=== PATIENT | female | born 2000 | race Caucasian/White ===

== ENCOUNTER → 2019-07-22 16:55 | Outpatient (CLI) | payer BC, SELFPAY ==
[2019-07-22 16:57] LABS: Adenovirus,PCR Not Detected (NotDetected); Bordetella Pertussis Not Detected (NotDetected); Chlamydophila Pneumoniae, PCR Not Detected (NotDetected); Coronavirus 229E Not Detected (NotDetected); Coronavirus NL63 Not Detected (NotDetected); Coronavirus OC43 Not Detected (NotDetected); Coronovirus HKU1,PCR Not Detected (NotDetected); Human Metapneumovirus Not Detected (NotDetected); Influenza A, PCR Not Detected (NotDetected); Influenza AH1, 2009 Not Detected (NotDetected); Influenza AH1, PCR Not Detected (NotDetected); Influenza AH3,PCR Not Detected (NotDetected); Influenza B, PCR Not Detected (NotDetected); Mycoplasma Pneumoniae, PCR Not Detected (NotDetected); Parainfluenza 1, PCR Not Detected (NotDetected); Parainfluenza 2, PCR Not Detected (NotDetected); Parainfluenza 3, PCR Not Detected (NotDetected); Parainfluenza 4, PCR Not Detected (NotDetected); Respiratory Syncytial Virus Not Detected (NotDetected); Rhinovirus/Enterovirus Not Detected (NotDetected)
== END ==
PROVIDERS: Visit Provider Internal Medicine
DX: R59.9 Enlarged lymph nodes, unspecified (principal); R06.02 Shortness of breath; R05 Cough; Z20.828 Contact with and (suspected) exposure to other viral communicable diseases
CPT/HCPCS: 87486; 87581; 87633; 87798

== ENCOUNTER → 2020-02-03 15:59 | Outpatient (CLI) | payer BC, SELFPAY ==
[2020-02-05 14:10] LABS: Covid-19 Nasal PCR Sendout Lex NOT DETECTED
== END ==
PROVIDERS: Visit Provider Internal Medicine
DX: Z03.818 Encounter for observation for suspected exposure to other biological agents ruled out (principal); R50.9 Fever, unspecified; R05 Cough; R09.81 Nasal congestion
CPT/HCPCS: U0004

== ENCOUNTER → 2021-03-28 15:36 | Outpatient (CLI) | payer SELFPAY | PROVIDERS: PCP Internal Medicine; Visit Provider Nurse Practitioner | DX: Z20.822 Contact with and (suspected) exposure to COVID-19 (principal) | CPT/HCPCS: C9803; U0003; U0005 ==

== ENCOUNTER 2022-10-02 23:13 | Emergency (ER) | payer SELFPAY ==
[2022-10-02 23:26] VITALS: BP 121/79; PULSE 81; RESP 19; TEMP 36.7; O2SAT 98; BMI 22.9
[2022-10-02 23:36] LABS: Microscopic, Urine URINE MICROSCOPIC (MICROSCOPIC)
--- NOTE | 2022-10-02 23:37 | HMH.EDABDPAI ---
Discharge Plan Disposition Patient Disposition: Home, Self-Care Chief Complaint: Abdominal Pain Prescriptions Prescriptions: No Action Nexplanon 68 mg implant SUBDERMAL azithromycin 500 mg tablet See Rx Instructions PO .COMPLEX Qty: 3 0RF Dose Instruction: take 500 mg today (day 1), then 250 mg for 4 days (days 2-5) PO Rx Instructions: take 500 mg today (day 1), then 250 mg for 4 days (days 2-5) PO Referrals Follow up/Referrals: Damien Landis MD [Primary Care Provider] - See instructions Natty Cyr APRN [Staff Physician] - See instructions Clinical Impressions Clinical Impression: Abdominal pain Instructions Patient Instructions: DI for Acute Abdominal Pain Discharge ED Provider: Kristen (ED)Beto Abdominal Pain HPI General Chief Complaint: Abdominal Pain Stated Complaint: stomach pain with nausea Time Seen by Provider: 10/02/22 23:37 Mode of Arrival: Family Vehicle Source of Information: Patient and Medical Record Limitations: No Limitations Description of Symptoms (Recalled from ER Triage Doc. by RN): 21 yo femal sharp midepigastric pain that is intermittent, radiates up throughout chest and out between her shoulder blades. States she doesn't usually go to the doctor, but was told she had a bad gallbladder once. States most recent BM today and was diarrhea, bloody with red tinged blood . Currently on menses. BC implant in left arm. Afebrile. Denies n/v. Dyspnea with the mid-epigastric pain. Resolves independently and is not reproducible with movement. History of Present Illness HPI narrative: upper abd pain over the last few days rad to back - also has loose stool with possible blood in stool - complaint: abdominal pain Onset (ago): day(s) Consistency: intermittent Location: epigastric Severity: moderate Associated symptoms: denies other symptoms Related Data Home Medications Medication Instructions Recorded Confirmed etonogestrel 68 mg subdermal subdermal 07/29/18 03/15/19 implant (Nexplanon) Previous Rx's Medication Instructions Recorded azithromycin 500 mg tablet See Rx Instructions PO .COMPLEX #3 03/15/19 tabs Allergies Allergy/AdvReac Type Severity Reaction Status Date / Time Penicillins Allergy Unknown Verified 03/15/19 10:34 [facility] Disclaimer: The information contained in this section may have been updated after the patient was seen, as this information can be updated by other users. Social History Smoking Status: Never smoker alcohol intake: current substance use type: denies use current occupational status: employed Travel in the last 8 weeks: None ROS Obtained: Yes All systems reviewed & no additional complaints except as documented Physical Exam General General appearance: alert Head Head exam: normocephalic Eye Eye exam: Present PERRL and EOMI ENT ENT exam: Present mucous membranes moist Neck Neck exam: Present trachea midline Respiratory Respiratory exam: Absent respiratory distress Cardiovascular Cardiovascular exam: Present regular rate Abdominal Exam Abdominal exam: Present soft, tenderness and Colunga's sign; Absent guarding Abdominal tenderness: Present epigastrium and moderate Extremities Exam Extremities exam: Present full ROM Neurological Exam Neurological exam: Present alert, oriented X3 and CN II-XII intact; Absent motor sensory deficit Skin Skin exam: Absent rash Medical Decision Making Medical Records Medical records reviewed: Yes I reviewed the patient's medical records. Freeman Inquiry Pt receiving controlled substance: No Vital Signs: 10/02/22 23:26 Temperature 98.1 F Temperature Source Oral Pulse Rate [Right Brachial] 81 Respiratory Rate 19 Blood Pressure [Right Arm] 121/79 Blood Pressure Mean [Right Arm] 93 Blood Pressure Source [Right Arm] Automatic Cuff Blood Pressure Position [Right Arm] Sitting 02 Sat by Pulse Oximetry 98 Oxygen Delivery Method Room Air Lab
[2022-10-02 23:55] LABS: Appearance,Urine CLEAR (Clear); Bilirubin,Urine Negative (Negative); Blood, Urine Negative (Negative); Color,Urine YELLOW (Yellow); Glucose,Urine (UA) Negative (Negative); Ketones,Urine Negative (Negative); Leukocyte Esterase,Urine Negative (Negative); Nitrate,Urine Negative (Negative); PH,Urine 5.5 (5.0-8.5); Protein,Urine Negative (Negative); Specific Gravity, Urine <= 1.005 (1.005-1.030); Urobilinogen,Urine 0.2 EU/dl (0.2)
[2022-10-02 23:56] LABS: Urine Pregnancy, HCG Qual. Negative (Negative)
--- NOTE | 2022-10-03 | CT_ITS ---
PROCEDURE INFORMATION: Exam: CT Abdomen And Pelvis With Contrast Exam date and time: 10/03/2022 12:14 AM Age: 21 years old Clinical indication: Nausea; Abdominal pain; Localized; Upper; Additional info: Mid epi abd pain TECHNIQUE: Imaging protocol: Computed tomography of the abdomen and pelvis with contrast. Radiation optimization: All CT scans at this facility use at least one of these dose optimization techniques: automated exposure control; mA and/or kV adjustment per patient size (includes targeted exams where dose is matched to clinical indication); or iterative reconstruction. Contrast material: ISOVUE; Contrast volume: 75 ml; Contrast route: IV; REPORTING DATA: Count of CT and Cardiac NM exams in prior 12 months: This patient has received 0 known CTs and 0 known cardiac nuclear medicine studies in the 12 months prior to the current study. COMPARISON: CR PELAP PELVIS AP ONLY 11/17/2015 12:47 AM FINDINGS: Liver: Normal. No mass. Gallbladder and bile ducts: Normal. No calcified stones. No ductal dilation. Pancreas: Normal. No ductal dilation. Spleen: Normal. No splenomegaly. Adrenal glands: Normal. No mass. Kidneys and ureters: Normal. No hydronephrosis. Stomach and bowel: Unremarkable. No obstruction. No mucosal thickening. Appendix: No evidence of appendicitis. The appendix appears normal. Intraperitoneal space: There is trace fluid in the cul-de-sac. Vasculature: Unremarkable. No abdominal aortic aneurysm. Lymph nodes: Unremarkable. No enlarged lymph nodes. Urinary bladder: Unremarkable as visualized. Reproductive: Unremarkable as visualized. Bones/joints: Unremarkable. No acute fracture. Soft tissues: Unremarkable. IMPRESSION: Trace fluid in the cul-de-sac. Otherwise no evidence of acute process.
[2022-10-03 00:19] LABS: Bacteria,Urine Trace /lpf
[2022-10-03 00:52] LABS: Basophils % 0.4 % (0.1-2.0); Eosinophils # 0.3 K/mm3 (0.0-0.4); Eosinophils % 2.7 % (0.1-12.0); Hematocrit 41.5 % (37.0-47.0); Hemoglobin 13.8 g/dL (12.2-16.2); Lymphocytes # 3.5 K/mm3 (0.7-4.5); Lymphocytes % 36.4 % (10-50); Mean Corpuscular HGB Conc 33.2 g/dL (31.8-35.4); Mean Corpuscular Hemoglobin 30.7 pg (27.0-31.2); Mean Corpuscular Volume 92.6 fl (81-99); Mean Platelet Volume 9.8 fl (7.4-10.4); Monocytes # 0.5 K/mm3 (0.1-1.0); Monocytes % 4.7 % (1.7-9.3); Neutrophils # 5.3 K/mm3 (1.8-7.8); Neutrophils % 55.8 % (37.0-80.0); Platelet Count 225 K/mm3 (142-424); Red Blood Count 4.49 M/mm3 (4.20-5.40); Red Cell Distribution Width 12.4 % (11.5-17.5); White Blood Count 9.6 K/mm3 (4.8-10.8)
[2022-10-03 01:13] LABS: Chloride 102 mmol/L (98-107); Sodium 142 mmol/L (136-145)
[2022-10-03 01:14] LABS: Potassium 3.6 mmoL/L (3.5-5.1)
[2022-10-03 01:16] LABS: Alanine Aminotransferase 24 U/L (12-78); Amylase 84 U/L (30-110); Anion Gap 18.6 mEq/L (5-15); Aspartate Amino Transferase 35 U/L (14-36); Blood Urea Nitrogen 16 mg/dl (7-17); Carbon Dioxide 25 mmol/L (22.0-30.0); Creatinine Clearance Estimated 108 mL/min (50-200); Estimated Glomerular Filt Rate 78 ml/min (>60); GFR (African American) 94 ML/MIN (>60)
[2022-10-03 01:17] LABS: Albumin Level 4.6 g/dl (3.5-5.0); Albumin/Globulin Ratio 1.6 (1.1-1.8); Alkaline Phosphatase 24 U/L (38-126); Bilirubin,Total 0.3 mg/dl (0.2-1.3); Calcium 9.1 mg/dl (8.4-10.2); Globulin 2.8 g/dL (1.3-3.2); Glucose 80 mg/dl (74-100); Lipase 240 U/L (23-300); Total Protein,Serum 7.4 g/dl (6.3-8.2)
[2022-10-03 01:22] LABS: C-Reactive Protein 2.3 mg/L (0-4)
[2022-10-03 01:54] LABS: Erythrocyte Sedimentation Rate 16 mm/hr (0-20)
[2022-10-03 02:01] LABS: Procalcitonin 0.039 ng/mL (0.0-2.0)
[2022-10-03 02:08] VITALS: BP 125/75; PULSE 76; RESP 19; TEMP 36.8; O2SAT 98
== END 2022-10-03 02:22 | disposition home or self-care (01) ==
PROVIDERS: Emergency Provider Emergency Medicine; PCP Internal Medicine
DX: R10.13 Epigastric pain (principal); R11.0 Nausea
CPT/HCPCS: 74177; 80053; 81001; 81025; 82150; 83690; 84145; 85025; 85651; 86140; 96361; 96374; 96375; 99284; 99285; Q9967

== ENCOUNTER 2022-10-05 01:43 | Emergency (ER) | payer OTHER, SELFPAY ==
[2022-10-05] VITALS (8 sets, daily range): BP systolic 118–149; BP diastolic 72–105; PULSE 54–97; RESP 16; TEMP 37; O2SAT 99–100; BMI 22.9
--- NOTE | 2022-10-05 01:42 | ECG_ITS ---
APPROVED REPORT Exam: Resting ECG HR:78 bpm ECG Measurements Heart Rate 78 AXES CA 151 P 59 QRSd 90 QRS 74 QT 381 T 54 QTc 415 Conclusion SINUS RHYTHM WITH SINUS ARRHYTHMIA NORMAL ECG UNCONFIRMED REPORT Electronically signed by : Haseeb Cisneros MD 10/06/2022 07:16:03
--- NOTE | 2022-10-05 01:44 | XR_ITS ---
PROCEDURE INFORMATION: Exam: XR Chest Exam date and time: 10/05/2022 2:17 AM Age: 22 years old Clinical indication: Pain; Other: Epigastric; Additional info: Cp TECHNIQUE: Imaging protocol: Radiologic exam of the chest. Views: 2 views. COMPARISON: CR CXR CHEST(2 VIEWS-NOT PORTABLE) 11/17/2015 12:45 AM FINDINGS: Lungs: Normal. Pleural spaces: Unremarkable. No pleural effusion. No pneumothorax. Heart/Mediastinum: Normal. Bones/joints: No acute abnormality. IMPRESSION: No acute findings.
[2022-10-05 01:57] LABS: Basophils % 0.4 % (0.1-2.0); Eosinophils # 0.3 K/mm3 (0.0-0.4); Eosinophils % 3.2 % (0.1-12.0); Hematocrit 43.2 % (37.0-47.0); Hemoglobin 13.8 g/dL (12.2-16.2); Lymphocytes # 4.1 K/mm3 (0.7-4.5); Lymphocytes % 40.6 % (10-50); Mean Corpuscular Hemoglobin 29.7 pg (27.0-31.2); Mean Platelet Volume 8.8 fl (7.4-10.4); Monocytes # 0.5 K/mm3 (0.1-1.0); Monocytes % 4.7 % (1.7-9.3); Neutrophils # 5.2 K/mm3 (1.8-7.8); Neutrophils % 51.1 % (37.0-80.0); Platelet Count 221 K/mm3 (142-424); Red Blood Count 4.65 M/mm3 (4.20-5.40); Red Cell Distribution Width 12.4 % (11.5-17.5); White Blood Count 10.1 K/mm3 (4.8-10.8)
[2022-10-05 01:59] LABS: Chloride 101 mmol/L (98-107); Potassium 3.7 mmoL/L (3.5-5.1); Sodium 139 mmol/L (136-145)
[2022-10-05 02:02] LABS: Anion Gap 16.7 mEq/L (5-15); Blood Urea Nitrogen 11 mg/dl (7-17); Carbon Dioxide 25 mmol/L (22.0-30.0); Creatinine Clearance Estimated 124 mL/min (50-200); Estimated Glomerular Filt Rate 88 ml/min (>60); GFR (African American) 107 ML/MIN (>60); Glucose 91 mg/dl (74-100)
[2022-10-05 02:08] LABS: C-Reactive Protein 1.5 mg/L (0-4)
[2022-10-05 02:15] LABS: Amylase 81 U/L (30-110); Lipase 220 U/L (23-300)
[2022-10-05 02:17] LABS: HCG Qualitative, Serum Negative (Negative)
[2022-10-05 02:20] LABS: Procalcitonin 0.035 ng/mL (0.0-2.0)
--- NOTE | 2022-10-05 02:22 | CT_ITS ---
PROCEDURE INFORMATION: Exam: CT Abdomen And Pelvis With Contrast Exam date and time: 10/05/2022 2:31 AM Age: 22 years old Clinical indication: Abdominal pain; Patient HX: Epigastric pain x4 days. TECHNIQUE: Imaging protocol: Computed tomography of the abdomen and pelvis with contrast. Radiation optimization: All CT scans at this facility use at least one of these dose optimization techniques: automated exposure control; mA and/or kV adjustment per patient size (includes targeted exams where dose is matched to clinical indication); or iterative reconstruction. Contrast material: ISOVUE; Contrast volume: 75 ml; Contrast route: IV; REPORTING DATA: Count of CT and Cardiac NM exams in prior 12 months: This patient has received [address] and 0 known cardiac nuclear medicine studies in the 12 months prior to the current study. COMPARISON: CT ABDOMEN PELVIS W CON 10/03/2022 12:14 AM FINDINGS: Liver: Mild hepatomegaly. Gallbladder and bile ducts: Normal. Pancreas: Normal. Spleen: Normal. Adrenal glands: Normal. No mass. Kidneys and ureters: Normal. Stomach and bowel: Several loops of nondilated, gas and fluid-filled small bowel, which is a nonspecific finding, but can be seen with enteritis. Appendix: Appendix normal. Intraperitoneal space: Small amount of pelvic free fluid, likely physiologic. Vasculature: Unremarkable. No abdominal aortic aneurysm. Lymph nodes: Unremarkable. No enlarged lymph nodes. Urinary bladder: Unremarkable as visualized. Reproductive: 16 mm right ovarian cyst. Bones/joints: No acute abnormality. Soft tissues: Normal. IMPRESSION: Several loops of nondilated, gas and fluid-filled small bowel, which is a nonspecific finding, but can be seen with enteritis.
[2022-10-05 02:23] LABS: Free T4 (Free Thyroxine) 0.94 ng/dl (0.78-2.19)
[2022-10-05 02:24] LABS: Troponin I < 0.01 ng/ml (0.00-0.034)
[2022-10-05 02:32] LABS: Erythrocyte Sedimentation Rate 10 mm/hr (0-20)
[2022-10-05 02:35] LABS: Thyroid Stimulating Hormone 7.03 uIU/mL (0.465-4.68)
[2022-10-05 03:32] LABS: Microscopic, Urine URINE MICROSCOPIC (MICROSCOPIC)
[2022-10-05 03:34] LABS: Appearance,Urine CLEAR (Clear); Bilirubin,Urine Negative (Negative); Blood, Urine Negative (Negative); Color,Urine YELLOW (Yellow); Glucose,Urine (UA) Negative (Negative); Ketones,Urine Negative (Negative); Leukocyte Esterase,Urine Negative (Negative); Nitrate,Urine Negative (Negative); PH,Urine 5.5 (5.0-8.5); Protein,Urine Negative (Negative); Specific Gravity, Urine <= 1.005 (1.005-1.030); Urobilinogen,Urine 0.2 EU/dl (0.2)
[2022-10-05 03:55] LABS: Bacteria,Urine Trace /lpf
--- NOTE | 2022-10-05 04:09 | PC.NURSE ---
called xray to check status of scans. 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
--- NOTE | 2022-10-05 05:00 | HMH.EDABDPAI ---
Discharge Plan Disposition Patient Disposition: Home, Self-Care Prescriptions Prescriptions: New dicyclomine 10 mg capsule 10 mg PO TID Qty: 30 0RF No Action Nexplanon 68 mg implant 68 implant SUBDERMAL DAILY Referrals Follow up/Referrals: Damien Landis MD [Primary Care Provider] - See instructions Natty Cyr APRN [Staff Physician] - See instructions Clinical Impressions Clinical Impression: Enteritis Instructions Patient Instructions: DI for Acute Abdominal Pain Discharge ED Provider: Kristen (ED)Beto Abdominal Pain HPI General Chief Complaint: Abdominal Pain Stated Complaint: cp Time Seen by Provider: 10/05/22 03:00 Mode of Arrival: Ambulatory Source of Information: Patient and Medical Record Limitations: No Limitations Description of Symptoms (Recalled from ER Triage Doc. by RN): pt c/o epigastric pain radiating around to back x 4 days. pt states was seen in er on 10/02 for same problem. Tried to see pcp yesterday but office was close History of Present Illness HPI narrative: pt with ongoing abd pain with diarrhea x 4 days complaint: abdominal pain Onset (ago): day(s) Consistency: intermittent Location: diffuse Severity: moderate Associated symptoms: denies other symptoms Related Data Home Medications Medication Instructions Recorded Confirmed etonogestrel 68 mg subdermal 68 implant subdermal DAILY 07/29/18 10/05/22 implant (Nexplanon) control Previous Rx's Medication Instructions Recorded dicyclomine 10 mg capsule 10 mg PO TID #30 caps 10/05/22 Allergies Allergy/AdvReac Type Severity Reaction Status Date / Time Penicillins Allergy Unknown Verified 03/15/19 10:34 [facility] Disclaimer: The information contained in this section may have been updated after the patient was seen, as this information can be updated by other users. Social History Smoking Status: Never smoker alcohol intake: current substance use type: denies use current occupational status: employed Travel in the last 8 weeks: None ROS Obtained: Yes All systems reviewed & no additional complaints except as documented Physical Exam General General appearance: alert Head Head exam: normocephalic Eye Eye exam: Present PERRL and EOMI ENT ENT exam: Present mucous membranes moist Neck Neck exam: Present full ROM and trachea midline Respiratory Respiratory exam: Present normal lung sounds bilaterally; Absent respiratory distress Cardiovascular Cardiovascular exam: Present regular rate Abdominal Exam Abdominal exam: Present soft and tenderness; Absent guarding or rebound Abdominal tenderness: Present diffuse and mild Extremities Exam Extremities exam: Present full ROM Neurological Exam Neurological exam: Present alert, oriented X3 and CN II-XII intact; Absent motor sensory deficit Psychiatric Psychiatric exam: Present normal affect Skin Skin exam: Absent rash Medical Decision Making Medical Records Medical records reviewed: Yes I reviewed the patient's medical records. Freeman Inquiry Pt receiving controlled substance: No Vital Signs: 10/05/22 01:43 10/05/22 02:59 10/05/22 01:43 Temperature 98.6 F Temperature Source Oral Pulse Rate 75 97 H Pulse Rate [Right] 84 Respiratory Rate 16 Blood Pressure 123/72 149/99 H Blood Pressure [Right Arm] 149/99 H Blood Pressure Mean Blood Pressure Mean [Right Arm] 115 02 Sat by Pulse Oximetry 100 100 100 Oxygen Delivery Method Room Air Room Air 10/05/22 02:00 10/05/22 02:47 10/05/22 03:30 Temperature Temperature Source Pulse Rate 71 75 68 Pulse Rate [Right] Respiratory Rate Blood Pressure 143/105 H 123/72 128/87 Blood Pressure [Right Arm] Blood Pressure Mean 97 Blood Pressure Mean [Right Arm] 02 Sat by Pulse Oximetry 100 100 99 Oxygen Delivery Method Room Air 10/05/22 04:00 10/05/22 04:30 Temperature Temperature Source Pulse Rate 54 L 62 Pulse Rate [Right]
== END 2022-10-05 05:23 | disposition home or self-care (01) ==
PROVIDERS: Emergency Provider Emergency Medicine; PCP Internal Medicine
DX: R07.9 Chest pain, unspecified (principal); R10.13 Epigastric pain; K52.9 Noninfective gastroenteritis and colitis, unspecified
CPT/HCPCS: 71046; 74177; 80048; 81001; 82150; 83690; 84145; 84439; 84443; 84484; 84703; 85025; 85651; 86140; 93005; 96361; 96374; 96375; 99285; J0131; J2405; Q9967

== ENCOUNTER → 2022-10-12 07:54 | Outpatient (CLI) | payer OTHER, SELFPAY | LOC: RAD 07:54 | PROVIDERS: PCP Internal Medicine; Visit Provider Internal Medicine | DX: R10.11 Right upper quadrant pain (principal) | CPT/HCPCS: 76705 ==

== ENCOUNTER 2023-04-18 15:46 | Emergency (ER) | payer OTHER, SELFPAY ==
--- NOTE | 2023-04-18 16:40 | EXP.UTC ---
Discharge Plan Disposition Patient Disposition: Home, Self-Care Condition: Good Prescriptions Prescriptions: New promethazine 25 mg tablet 25 mg PO TID PRN (Reason: nausea and vomiting) Qty: 20 0RF Referrals Follow up/Referrals: Damien Landis MD [Primary Care Provider] - See instructions Activity Restrictions/Add. Instructions Additional Instructions/Restrictions: Drink plenty of fluids. Take tylenol or ibuprofen for pain or fever. Take the medications as directed. Follow up with your regular doctor. 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 GO TO THE ER FOR ANY WORSENING SYMPTOMS Clinical Impressions Clinical Impression: Gastroenteritis, Acute viral syndrome Stand Alone Forms Stand Alone Forms: Work/School Release Instructions Patient Instructions: DI for Viral Gastroenteritis -- Adult, Promethazine Discharge ED Provider: Eulogio Chan [facility] General Stated complaint: st vomiting diarrhea Time Seen by Provider: 04/18/23 16:40 History of Present Illness Provider Complaint: She states that she has had n/v/d since yesterday. She is 18 weeks . She denies any abdominal pain. She denies any back pain. She denies any urinary complaints. Related Data Previous Rx's Medication Instructions Recorded promethazine 25 mg tablet 25 mg PO TID PRN nausea and 04/18/23 vomiting #20 tabs Allergies Allergy/AdvReac Type Severity Reaction Status Date / Time Penicillins Allergy Unknown Verified 04/18/23 16:53 [facility] Disclaimer: The information contained in this section may have been updated after the patient was seen, as this information can be updated by other users. Surgical History No history of previous surgery Family History (Updated 10/26/22 @ 09:08 by TRACI Gonzalez) Other No significant family history Social History Smoking Status: Never smoker alcohol intake: current substance use type: denies use current occupational status: employed Travel in the last 8 weeks: None ROS Obtained: Yes All systems reviewed & no additional complaints except as documented Constitutional Constitutional: Denies chills, Denies fever(s) and Reports poor appetite ENT Ears, Nose, Mouth, and Throat: Denies dizziness and Denies sore throat Cardiovascular Cardiovascular: Denies dyspnea Respiratory Respiratory: Denies chest congestion, Denies cough and Denies dyspnea Gastrointestinal Gastrointestingal: Reports as per HPI, diarrhea, nausea and vomiting; Denies abdominal pain or cramping Genitourinary Female Genitourinary: Denies difficulty voiding, Denies dysuria, Denies hematuria, Denies urinary frequency, Denies urinary incontinence, Denies urinary hesitancy and Denies urinary urgency Musculoskeletal Musculoskeletal: Denies arthralgias Integumentary/Breasts Skin/Breast: Denies rash Neurologic Neurologic: Denies dizziness Physical Exam General General appearance: alert and in no apparent distress Head Head exam: atraumatic, normocephalic and normal inspection Eye Eye exam: Present normal appearance, PERRL and EOMI ENT ENT exam: Present normal exam, normal oropharynx, mucous membranes moist, TM's normal bilaterally and normal external ear exam Neck Neck exam: Present normal inspection, full ROM and trachea midline; Absent meningismus or lymphadenopathy Chest Chest inspection: Present normal inspection and symmetric chest wall rise; Absent tenderness Respiratory Respiratory exam: Present normal lung sounds bilaterally; Absent respiratory distress Cardiovascular Cardiovascular exam: Present regular rate and normal rhythm; Absent JVD Abdominal Exam Abdominal exam: Present soft and normal bowel sounds; Absent distention, tenderness or guarding Extremities Exam Extremities exam: Present normal inspection, full ROM and normal capillary refill; Absent calf tenderness Back Exa
[2023-04-18 16:45] VITALS: BP 122/62; PULSE 89; RESP 18; TEMP 36.9; O2SAT 98; BMI 25.1
[2023-04-18 17:06] LABS: UTC Influenza A Antigen Negative (Negative); UTC Influenza B Antigen Negative (Negative)
[2023-04-18 17:07] LABS: UTC Strep Screen (Rapid) Negative (Negative)
[2023-04-18 18:02] VITALS: BP 122/62; PULSE 89; RESP 18; TEMP 36.9; O2SAT 98
== END 2023-04-18 18:02 | disposition home or self-care (01) ==
PROVIDERS: Emergency Provider Nurse Practitioner Family; PCP Internal Medicine
DX: O98.512 Other viral diseases complicating pregnancy, second trimester (principal); A08.4 Viral intestinal infection, unspecified; Z3A.18 18 weeks gestation of pregnancy; R11.2 Nausea with vomiting, unspecified; R19.7 Diarrhea, unspecified
CPT/HCPCS: 87635; 87804; 87880; 99204; 99212; G0463

== ENCOUNTER 2023-09-17 14:42 | Emergency (ER) | payer OTHER, BC, SELFPAY ==
[2023-09-17 14:55] VITALS: BP 118/75; PULSE 81; RESP 18; TEMP 37.4; O2SAT 98; BMI 25.9
--- NOTE | 2023-09-17 15:13 | ED_ITS ---
Discharge Plan Disposition Patient Disposition: Home, Self-Care Condition: Good Prescriptions Prescriptions: New sulfamethoxazole-trimethoprim [Bactrim DS] 800-160 mg tablet 1 tab PO Q12H 7 Days Qty: 14 0RF Referrals Follow up/Referrals: Damien Landis MD [Primary Care Provider] - See instructions Activity Restrictions/Add. Instructions Additional Instructions/Restrictions: *Increase fluids. Water not Soda or Tea *Start antibiotic immediately and be sure to take as ordered for the FULL length of time although you should start to see improvement over the next 48 hours Be SURE to follow up anytime for new or worsening symptoms with your family doctor. AND in 48 hours for urine culture results with your family doctor, if you do not have a doctor then you may call back to the [facility] for urine culture results and further treatment. We do recommend that you choose and establish care with a Primary Care Physician. ?AND follow up with them ?in 10-14 days to repeat UA to ensure infection is resolved and blood no longer present *Be sure to let your PCP know that we sent urine cultures from the [facility] so they can follow up to ensure that you area the on the correct antibiotic Call your doctor office and make appointment for 48 hours (2 days from today) ?to follow up and get the results of your urine culture and further treatment Clinical Impressions Clinical Impression: UTI (urinary tract infection) Instructions Patient Instructions: DI for Urinary Tract Infection (UTI), Urinary Tract Infe ction Discharge ED Provider: Sherlyn Cantu [facility] HPI General Stated complaint: uti two weeks post Time Seen by Provider: 09/17/23 15:13 History of Present Illness Provider Complaint: Patient states that she is two weeks post states that she is having achy like feeling in her back, burning with urination and pressure like feeling like she has to go along with urgency and frequency thinks she may have a UTI Related Data Previous Rx's Medication Instructions Recorded sulfamethoxazole 800 1 tab PO Q12H 7 days #14 tabs 09/17/23 mg-trimethoprim 160 mg tablet (Bactrim DS) Allergies Allergy/AdvReac Type Severity Reaction Status Date / Time Penicillins Allergy Unknown Verified 09/17/23 15:15 [facility] Disclaimer: The information contained in this section may have been updated after the patient was seen, as this information can be updated by other users. Surgical History No history of previous surgery Family History Other No significant family history Social History Smoking Status: Never smoker alcohol intake: current alcohol intake frequency: holidays/special occasions only substance use type: denies use current occupational status: employed Travel in the last 8 weeks: None ROS Obtained: Yes All systems reviewed & no additional complaints except as documented and Yes Systems reviewed as appropriate & no additional complaints except as documented Constitutional Constitutional: Reports system reviewed and no additional complaints, except as documented, Reports as per HPI, Denies body ache, Denies chills, Denies fever(s) and Denies headache(s) ENT Ears, Nose, Mouth, and Throat: Reports system reviewed and no additional complaints, except as documented, Reports as per HPI and Denies headache(s) Cardiovascular Cardiovascular: Reports system reviewed and no additional complaints, except as documented and Reports as per HPI Respiratory Respiratory: Reports system reviewed and no additional complaints, except as documented and Reports as per HPI Gastrointestinal Gastrointestingal: Reports system reviewed and no additional complaints, except as documented and as per HPI Genitourinary Female Genitourinary: Reports system reviewed and no additional complaints, except as documented, Reports as per HPI, Reports dysuria, Reports flank pain, Reports urinary frequency, Reports urinary urgency and Reports other (pressure like feeling in lower abdomen) Neurologic Neurologic: Denies headache(s) Physical Exam General General appearance: alert and in no apparent distress ENT ENT exam: Present mucous membranes moist Respiratory Respiratory exam: Present normal lung sounds bilaterally; Absent respiratory distress or wheezes Cardiovascular Cardiovascular exam: Present regular rate, normal rhythm and normal heart sounds Abdominal Exam Abdominal exam: Present soft and normal bowel sounds; Absent distention or tenderness Neurological Exam Neurological exam: Present alert, oriented X3 and normal gait Medical Decision Making Freeman Inquiry Pt receiving controlled substance: No Freeman was queried for this patient: No Lab Data Lab results reviewed: Yes I reviewed the patient's lab results. Orders (Tests/Meds): ORDERS Category Date Time Status Urine Culture Stat Micro 09/17/23 15:05 Ordered
[2023-09-17 15:16] LABS: Apearance,Urine Clear (Clear); Color,Urine Yellow (Yellow)
[2023-09-17 15:17] LABS: Bilirubin,Urine Negative (Negative); Blood, Urine 3+ (Negative); Glucose,Urine (UA) Negative (Negative); Ketones,Urine Negative (Negative); PH,Urine 6.5 (5.0-8.5); Protein,Urine Negative (Negative); Specific Gravity, Urine 1.015 (1.005-1.030); UTC Leukocyte Esterase,Urine 1+ (Negative); UTC Nitrate,Urine Negative (Negative); Urobilinogen,Urine 0.2 EU/dl (0.2)
[2023-09-17 15:37] VITALS: BP 118/75; PULSE 81; RESP 18; TEMP 37.4; O2SAT 98
== END 2023-09-17 15:37 | disposition home or self-care (01) ==
PROVIDERS: Emergency Provider Nurse Practitioner; PCP Internal Medicine
DX: N39.0 Urinary tract infection, site not specified (principal); B96.29 Other Escherichia coli [E. coli] as the cause of diseases classified elsewhere; M54.59 Other low back pain; R30.0 Dysuria
CPT/HCPCS: 81003; 87086; 87088; 87186; 99212; 99214; G0463

== ENCOUNTER 2024-06-25 16:20 | Outpatient (CLI) | payer BC, SELFPAY ==
--- NOTE | 2024-06-25 16:24 | XR_ITS ---
PROCEDURE INFORMATION: Exam: XR Right Toe(s) Exam date and time: 06/25/2024 4:25 PM Age: 23 years old Clinical indication: Injury or trauma; Blunt trauma; Toes; Right lesser toe(s); Injury details: Stubbed 5th digit on bed frame; Additional info: Injury to right fifth toe TECHNIQUE: Imaging protocol: Radiologic exam of the right toes. Views: Minimum 2 views. Total images: 3 COMPARISON: No relevant prior studies available. FINDINGS: Bones/joints: No evidence of acute fracture or dislocation. Soft tissues: Diffuse soft tissue swelling. IMPRESSION: 1. No evidence of acute fracture or dislocation. 2. Diffuse soft tissue swelling.
== END 2024-06-25 23:59 | disposition home or self-care (01) ==
LOC: RAD 16:21
PROVIDERS: PCP Internal Medicine; Visit Provider Internal Medicine
DX: M79.674 Pain in right toe(s) (principal); M79.89 Other specified soft tissue disorders
CPT/HCPCS: 73660

== ENCOUNTER 2024-08-14 02:33 | Emergency (ER) | payer BC, SELFPAY ==
[2024-08-14 02:59] VITALS: BP 119/80; PULSE 102; RESP 18; TEMP 37.5; O2SAT 97; BMI 20.2
--- NOTE | 2024-08-14 03:06 | ED_ITS ---
Discharge Plan Disposition Patient Disposition: Home, Self-Care Prescriptions Prescriptions: New ondansetron HCl 4 mg tablet 4 mg PO Q8H PRN (Reason: nausea and vomiting) 5 Days Qty: 30 0RF No Action azithromycin 250 mg tablet See Rx Instructions PO .COMPLEX Qty: 6 0RF Rx Instructions: For 250 mg dose pack: take 500 mg today (day 1), then 250 mg for 4 days (days 2-5) PO Referrals Follow up/Referrals: Damien Landis MD [Primary Care Provider] - See instructions Activity Restrictions/Add. Instructions Additional Instructions/Restrictions: Please follow-up with your primary care provider. Please return to the emergency department if you develop any new or worsening symptoms or become concerned for your health. Clinical Impressions Clinical Impression: Influenza A Print Language Print Language: Syriac Discharge ED Provider: Jose Fontana General Adult HPI General Chief complaint: Upper Respiratory Infection Stated complaint: sore throat,body aches,chills,vomiting,cough,fever Time Seen by Provider: 08/14/24 02:35 Mode of Arrival: Ambulatory Source of Information: Patient Description of Symptoms (Recalled from ER Triage Doc. by RN): Patient ambulatory to ED with complaints of severe headache, cough, congestion, and sore throat since 08/11. Patient recently seen by PCP and dx with bronchitis. Patient currently taking amoxicillin for present issue, but states that headahce is not responding to tylenol and ibuprofen intake. Afebrile during triage. History of Present Illness HPI narrative: 23-year-old female without significant past medical history presents with several days of cough congestion sore throat fever headache body aches. Recently seen by PCP and tested negative for COVID and flu. Was started on amoxicillin for reported bronchitis. Patient primarily complains about headache. Not responsive to Tylenol or ibuprofen. Related Data Previous Rx's ?Medication ?Instructions ?Recorded azithromycin 250 mg tablet See Rx Instructions PO .COMPLEX #6 08/13/24 tabs ondansetron HCl 4 mg tablet 4 mg PO Q8H PRN nausea and 08/14/24 vomiting 5 days #30 tabs Allergies Allergy/AdvReac Type Severity Reaction Status Date / Time Penicillins Allergy Unknown Verified 08/12/24 10:59 [facility] Disclaimer: The information contained in this section may have been updated after the patient was seen, as this information can be updated by other users. Surgical History No history of previous surgery Family History Other No significant family history Social History Smoking Status: Unknown if ever smoked alcohol intake: current alcohol intake frequency: holidays/special occasions only substance use type: denies use current occupational status: employed Travel in the last 8 weeks: None Have you lived/traveled outside [place] in past 30 days?: No Contact w/someone who lives/traveled outside [place] past 30 days?: No Exposure to someone with infectious disease in past 14 days?: No Do you have a fever (greater than 100.4 F or 38 C)?: Yes Have you tested positive for COVID-19: No Exposed to someone with COVID-19 in past 14 days?: No Do you have a sore throat?: Yes Do you have a cough?: Yes Do you have any weakness?: No Do you have any diarrhea?: No Are you experiencing any unusual bleeding?: No Do you have any muscle aches/pain?: Yes Do you have any abdominal pain?: No Are you experiencing loss of taste or smell?: No Other Medical History Have you received the Pneumonia Vaccine: No ROS Obtained: Yes All systems reviewed & no additional complaints except as documented Physical Exam General General appearance: alert and in no apparent distress Head Head exam: atraumatic and normocephalic Eye Eye exam: Present normal appearance, PERRL and EOMI ENT ENT exam: Present normal oropharynx and normal external ear exam Neck Neck exam: Present normal inspection and full ROM Chest Chest inspection: Present normal inspection and symmetric chest wall rise; Absent tenderness Respiratory Respiratory exam: Present normal lung sounds bilaterally; Absent respiratory distress Cardiovascular Cardiovascular exam: Present regular rate and normal rhythm Abdominal Exam Abdominal exam: Present soft; Absent distention, tenderness or guarding Extremities Exam Extremities exam: Present normal inspection; Absent edema or joint swelling Back Exam Back exam: Present normal inspection; Absent tenderness Neurological Exam Neurological exam: Present alert and oriented X3; Absent motor sensory deficit Psychiatric Psychiatric exam: Present normal affect and normal mood Skin Skin exam: Present warm, dry and normal color Lymphatic Lymphatic Findings: no adenopathy Medical Decision Making Medical Records Medical records reviewed: Yes I reviewed the patient's medical records. Screening: Per USPSTF and CDC recommendations, given the prevalence of disease in our region, it is our hospital?s policy to screen for HIV and viral Hepatitis for all patients aged 18 and over and those with ongoing risk factors. Freeman Inquiry Pt receiving controlled substance: No Freeman was queried for this patient: No Vital Signs: 08/14/24 02:59 08/14/24 04:33 Temperature 99.5 F 99.0 F Temperature Source Oral Oral Pulse Rate 77 Pulse Rate [Left] 102 H Respiratory Rate 18 17 Blood Pressure 104/61 L Blood Pressure [Right Arm] 119/80 Blood Pressure Mean [Right Arm] 93 Blood Pressure Source Automatic Cuff Blood Pressure Source [Right Arm] Automatic Cuff Blood Pressure Position Supine Blood Pressure Position [Right Arm] Supine 02 Sat by Pulse Oximetry 97 Oxygen Delivery Method Room Air Room Air Lab Data Lab results reviewed: Yes I reviewed the patient's lab results. Lab Results 08/14/24 02:52: SARS-CoV-2 (PCR) Not detected, Influenza A Untype (PCR) Detected A, Influenza Type B (PCR) Not detected, Group A Strep Rapid Negative 08/14/24 03:11: WBC 3.5 L, RBC 4.53, Hgb 13.5, Hct 40.8, MCV 90.1, MCH 29.8, MCHC 33.1, RDW 12.0, Plt Count 131 L, MPV 11.5 H, Neut % (Auto) 66.3, Lymph % (Auto) 22.0, [place] % (Auto) 11.1 H, Eos % (Auto) 0.3, Baso % (Auto) 0.3, Neut # (Auto) 2.3, Lymph # (Auto) 0.8, [place] # (Auto) 0.4, Eos # (Auto) 0.0, Baso # (Auto) 0.0, Sodium 137, Potassium 3.5, Chloride 104, Carbon Dioxide 23, Anion Gap 13.5, BUN 10, Creatinine 0.80, Estimated Creat Clear 105, Estimated GFR 87, Est GFR ( Amer) 106, Glucose 105 H, Calcium 8.8, Total Bilirubin 0.5, AST 25, ALT 17, Alkaline Phosphatase 46, Total Protein 6.9, Albumin 4.2, Globulin 2.7, Albumin/Globulin Ratio 1.6, Lipase 115, Serum HCG, Qual Negative, Monoscreen Negative 08/14/24 03:11 08/14/24 03:11 Orders (Tests/Meds): ED MEDICATIONS Discontinued Medications Generic Name Dose Route Start Last Admin Trade Name Gayle PRN Reason Stop Dose Admin Acetaminophen 1,000 mg 08/14/24 03:03 08/14/24 03:13 Acetaminophen 500mg Tab PO 08/14/24 03:04 1,000 mg ONCE ONE Administration Diphenhydramine HCl 25 mg 08/14/24 03:03 08/14/24 03:11 Diphenhydramine 50mg/Ml Vial IV 08/14/24 03:04 25 mg ONCE ONE Administration Sodium Chloride 1,000 mls @ 999 mls/hr 08/14/24 03:15 08/14/24 03:13 Sod Chlor 0.9% 1000ml Bag IV 08/14/24 04:15 999 mls/hr .Q1H1M KATIA Administration Prochlorperazine Edisylate 10 mg 08/14/24 03:03 08/14/24 03:13 Prochlorperazine 10mg/2ml Vial IV 08/14/24 03:04 10 mg ONCE ONE Administration ORDERS Category Date Time Status CBC w/Auto Diff [Complete Blood Count Auto Diff] Stat Lab 08/14/24 03:11 Completed CMP [Comprehensive Metabolic Panel] Stat Lab 08/14/24 03:11 Completed HCG Qualitative, Serum Stat Lab 08/14/24 03:11 Completed Lipase Stat Lab 08/14/24 03:11 Completed Monoscreen (Rapid) Stat Lab 08/14/24 03:11 Completed Rapid PCR Covid and Flu A/B Stat Lab 08/14/24 02:52 Completed Strep Scrn Group A (Rapid) Stat Lab 08/14/24 02:52 Completed Strep Screen Confirmation Stat Micro 08/14/24 02:52 Received Medical Decision Narrative: 23-year-old female without significant past medical history presents for multiple days of flulike illness. History was obtained via interactive discussion with patient, family, chart review. On arrival, patient is [afebrile, hemodynamically stable, satting appropriately, alert, oriented x4, GCS 15], moving all extremities spontaneously. Full physical exam performed and significant for clear lungs bilaterally, cobblestoning in the posterior oropharynx without exudate or tonsillar swelling Differential includes but is not limited to COVID, flu, pneumonia, mono, dehydration, tension headache, migraine headache, intracranial pathology. Patient was given Tylenol Compazine Benadryl IV fluids for symptomatic management and correction of underlying abnormalities. Workup initiated including CBC CMP mono, COVID flu swab. On re-evaluation, patient reports marked symptomatic improvement. Headache resolved. Laboratory workup independently interpreted by me and significant for influenza A positive, no significant electrolyte derangement, mild leukopenia and thrombocytopenia. Given patient history, exam and workup, patient's presentation most likely represents acute influenza A infection. Patient was discharged in stable condition with return precautions. Given prescription for Zofran. Procedures Risk/Benefits of Procedure(s) Were Explained: Yes Critical Care Critical Care Time Critical Care Time: No
[2024-08-14 03:07] LABS: Coronavirus 19, PCR Not Detected (NotDetected); Influenza B, PCR Not Detected (NotDetected)
[2024-08-14] MEDS: diphenhydrAMINE 50MG/ML VIAL 25 MG IV (03:11)
[2024-08-14] MEDS: ACETAMINOPHEN 500MG TAB 1000 MG PO (03:13)
[2024-08-14] MEDS: 0.9 % SODIUM CHLORIDE 1000ML 1,000 ML 999 ML IV (03:13)
[2024-08-14] MEDS: PROCHLORPERAZINE 10MG/2ML VIAL 10 MG IV (03:13)
[2024-08-14 03:19] LABS: Basophils % 0.3 % (0.1-2.0); Eosinophils % 0.3 % (0.1-12.0); Hematocrit 40.8 % (37.0-47.0); Hemoglobin 13.5 g/dL (12.2-16.2); Lymphocytes # 0.8 K/mm3 (0.7-4.5); Mean Corpuscular HGB Conc 33.1 g/dL (31.8-35.4); Mean Corpuscular Hemoglobin 29.8 pg (27.0-31.2); Mean Corpuscular Volume 90.1 fl (81-99); Mean Platelet Volume 11.5 fl (7.4-10.4); Monocytes # 0.4 K/mm3 (0.1-1.0); Monocytes % 11.1 % (1.7-9.3); Neutrophils # 2.3 K/mm3 (1.8-7.8); Neutrophils % 66.3 % (37.0-80.0); Platelet Count 131 K/mm3 (142-424); Red Blood Count 4.53 M/mm3 (4.20-5.40); White Blood Count 3.5 K/mm3 (4.8-10.8)
[2024-08-14 03:24] LABS: Strep Scrn Group A (Rapid) Negative (Negative)
[2024-08-14 03:29] LABS: Monoscreen (Rapid) Negative (Negative)
[2024-08-14 03:31] LABS: HCG Qualitative, Serum Negative (Negative)
[2024-08-14 03:33] LABS: Alanine Aminotransferase 17 U/L (12-78); Albumin Level 4.2 g/dl (3.5-5.0); Albumin/Globulin Ratio 1.6 (1.1-1.8); Alkaline Phosphatase 46 U/L (38-126); Anion Gap 13.5 mEq/L (5-15); Aspartate Amino Transferase 25 U/L (14-36); Bilirubin,Total 0.5 mg/dl (0.2-1.3); Blood Urea Nitrogen 10 mg/dl (7-17); Calcium 8.8 mg/dl (8.4-10.2); Carbon Dioxide 23 mmol/L (22.0-30.0); Chloride 104 mmol/L (98-107); Creatinine Clearance Estimated 105 mL/min (50-200); Estimated Glomerular Filt Rate 87 ml/min (>60); GFR (African American) 106 ML/MIN (>60); Globulin 2.7 g/dL (1.3-3.2); Glucose 105 mg/dl (74-100); Lipase 115 U/L (23-300); Potassium 3.5 mmoL/L (3.5-5.1); Sodium 137 mmol/L (136-145); Total Protein,Serum 6.9 g/dl (6.3-8.2)
[2024-08-14 04:15] LABS: Influenza A, PCR Detected (NotDetected)
[2024-08-14 04:33] VITALS: BP 104/61; PULSE 77; RESP 17; TEMP 37.2; O2SAT 96
== END 2024-08-14 04:38 | disposition home or self-care (01) ==
PROVIDERS: Emergency Provider Emergency Medicine; PCP Internal Medicine
DX: J10.1 Influenza due to other identified influenza virus with other respiratory manifestations (principal); R50.9 Fever, unspecified; R51.9 Headache, unspecified; R05.9 Cough, unspecified; R09.81 Nasal congestion; M79.10 Myalgia, unspecified site
CPT/HCPCS: 80053; 83690; 84703; 85025; 86318; 87430; 87636; 96361; 96374; 96375; 99283; J0780; J1200; J7030